=== PATIENT | male | born 1960 | race Caucasian/White ===

== ENCOUNTER 2019-01-02 20:21 | Emergency (ER) | payer OTHER ==
[~2019-01-02] VITALS: Ht 170.2 cm; Wt 82.0 kg
[2019-01-03] MEDS ORDERED: FLUORESCEIN SODIUM 1MG/STRIP EACHEYE ONE (01:45)
[2019-01-03 02:19] VITALS: BP 177/70
== END 2019-01-03 02:26 | disposition home or self-care (01) ==
LOC: ER 20:21
DX: B02.9 Zoster without complications (principal); E11.9 Type 2 diabetes mellitus without complications; I10 Essential (primary) hypertension; F17.210 Nicotine dependence, cigarettes, uncomplicated
CPT/HCPCS: 99283; 99406